=== PATIENT | female | born 1960 | race Caucasian/White ===

== ENCOUNTER 2019-03-24 12:05 | Emergency (ER) | payer MEDICARE, MEDICAID ==
[~2019-03-24] VITALS: Ht 154.9 cm; Wt 67.7 kg
[2019-03-24 12:55] VITALS: Ht 154.9 cm; Wt 67.7 kg
--- NOTE | 2019-03-24 13:34 | NUR ---
DR. BELL NOTIFIED AND REVIEWED PT'S BEHAVIOR AND ASSESSMENT RESULTS. PT IS A LOW RISK PER DR. BELL. DR. BELL STATED TO GIVE RESOURCES TO PT AT TIME OF DISCHARGE. NO FURTHER ORDERS AT THIS TIME. RESOURCES REVIEWED WITH PT AND SHE VERBALIZED UNDERSTANDING.
[2019-03-24] MEDS ORDERED: ROBAXIN500 MG PO (17:51)
[2019-03-24] MEDS ORDERED: TORADOL10 MG PO (17:51)
[2019-03-24 18:24] VITALS: BP 148/82
[2019-03-29] MEDS ORDERED: SYNTHROID100 MCG (13:18)
[2019-03-29] MEDS ORDERED: BUSPIRONE HCL30 MG (13:19)
== END 2019-03-24 18:25 | disposition home or self-care (01) ==
LOC: D.ER 12:05
DX: M54.12 Radiculopathy, cervical region (principal); M12.88 Other specific arthropathies, not elsewhere classified, other specified site; F17.210 Nicotine dependence, cigarettes, uncomplicated

== ENCOUNTER 2019-03-29 13:07 | Emergency (ER) | payer MEDICARE, MEDICAID ==
[~2019-03-29] VITALS: Ht 154.9 cm; Wt 67.7 kg
[~2019-03-29 13:07] MED LIST: ROBAXIN500 MG PO; TORADOL10 MG PO
[2019-03-29 13:10] VITALS: Ht 154.9 cm; Wt 67.7 kg
[2019-03-29] MEDS ORDERED: SYNTHROID100 MCG PO (13:18)
[2019-03-29] MEDS ORDERED: BUSPIRONE HCL30 MG PO (13:19)
[2019-03-29] MEDS ORDERED: ALBUTEROL SULF8.5 GM (13:21)
[2019-03-29 14:26] LABS: BASOPHILS 0.3 % (0-2); EOSINOPHILS 2.1 % (0-7); HEMATOCRIT 40.2 % (36.0-48.0); HEMOGLOBIN 13.8 g/dL (12-16); IMMATURE GRANULOCYTES 0.1 % (0-5); LYMPHOCYTES 32.1 % (15-50); MCH 30.2 pg (26.0-34.0); MCHC 34.3 g/dL (31.0-37.0); MEAN PLATELET VOLUME 10.6 fL (7.4-10.4); MONOCYTES 6.1 % (2-11); NEUTROPHILS 59.3 % (40-80); PLATELET COUNT 201 10x3/uL (130-400); RBC 4.57 10x6/uL (4.00-5.40); RDW 13.8 % (11.5-14.5)
[2019-03-29 14:42] LABS: ALBUMIN 3.5 g/dL (3.4-5.0); ANION GAP 12.2 mmol/L (8-16); BILIRUBIN - TOTAL 0.51 mg/dL (0.2-1.3); CALCIUM 8.8 mg/dL (8.5-10.1); CARBON DIOXIDE 28.4 mmol/L (21.0-32.0); CREATININE - SERUM 0.9 mg/dL (0.6-1.3); POTASSIUM - SERUM 3.6 mmol/L (3.5-5.1); PROTEIN - SERUM 6.7 g/dL (6.4-8.2)
[2019-03-29 15:25] LABS: APPEARANCE CLEAR (CLEAR); BILIRUBIN NEGATIVE (NEGATIVE); COLOR YELLOW (YELLOW); GLUCOSE NEGATIVE (NEGATIVE); KETONE NEGATIVE (NEGATIVE); NITRITE NEGATIVE (NEGATIVE); PROTEIN NEGATIVE (NEGATIVE); SPECIFIC GRAVITY 1.005 (1.005-1.020); UROBILINOGEN NORMAL (NORMAL)
[2019-03-29] MEDS ORDERED: LOMOTIL 2.5-0.1 EAC1 PO (16:01)
[2019-03-29] MEDS ORDERED: ZOFRAN ODT4 MG/UDTAB PO (16:01)
[2019-03-29 16:15] VITALS: BP 100/44
[2019-05-12] MEDS ORDERED: HYDROCODON-ACE1 EA10 PO (10:27)
[2019-05-12] MEDS ORDERED: EXCEDRIN MIGRAINE (10:29)
[2019-05-13 11:33] VITALS: Ht 154.9 cm; Wt 67.7 kg
== END 2019-03-29 16:15 | disposition home or self-care (01) ==
LOC: D.ER 13:07
PROVIDERS: Family Medicine
DX: A08.4 Viral intestinal infection, unspecified (principal); F32.9 Major depressive disorder, single episode, unspecified; F17.210 Nicotine dependence, cigarettes, uncomplicated

== ENCOUNTER 2019-05-13 05:49 | Day surgery (SDC) | payer MEDICARE, MEDICAID ==
[2019-05-12 11:33] LABS: HEMATOCRIT 43.3 % (36.0-48.0); HEMOGLOBIN 14.5 g/dL (12-16); MCH 29.7 pg (26.0-34.0); MCHC 33.5 g/dL (31.0-37.0); MCV 88.7 fL (80.0-100.0); MEAN PLATELET VOLUME 10.5 fL (7.4-10.4); RBC 4.88 10x6/uL (4.00-5.40); WBC 8.5 10x3/uL (4.8-10.8)
[2019-05-12 12:16] LABS: INR 0.97 (0.85-1.17); PROTIME 12.4 SECONDS (11.6-15.0)
[~2019-05-13] VITALS: Ht 154.9 cm; Wt 66.8 kg
[2019-05-13] VITALS (11 sets, daily range): BP systolic 119–153; BP diastolic 65–84; Ht 154.9 cm; Wt 66.8 kg
[~2019-05-13 05:49] MED LIST changes: +ALBUTEROL SULF8.5 GM; +BUSPIRONE HCL30 MG PO; +EXCEDRIN MIGRAINE; +HYDROCODON-ACE1 EA10 PO; +LOMOTIL 2.5-0.1 EAC1 PO; +SYNTHROID100 MCG PO; +ZOFRAN ODT4 MG/UDTAB PO
[2019-05-13] MEDS ORDERED: DURAGESIC1 PATCH .7 TRANSDERM (06:38)
--- NOTE | 2019-05-13 19:15 | NUR ---
RECEIVED CARE FROM DAY NURSE. UP AMBULATING.
--- NOTE | 2019-05-13 20:15 | NUR ---
PAIN MED GIVEN FOR NECK. DRESSING WEEPING BLOOD. DRESSING REINFORCED WITH ABD PAD AT THIS TIME. LINEN TO PILLOW CHANGED. NO OTHER NEEDS VOICED AT THIS TIME. CALL LIGHT AT SIDE.
--- NOTE | 2019-05-14 02:37 | NUR ---
I have reviewed this patient and I concur with the Shift Assessment completed by the Licensed Practical Nurse today this shift.
[2019-05-14 04:00] VITALS: BP 140/75
--- NOTE | 2019-05-14 07:05 | NUR ---
ALERT AND ORIENTED, SITTING UP IN BED. NO C/O PAIN. NO S/S OF ACUTE DISTRESS NOTED. DRESSING TO MIDLINE UPPER BACK, C/D/I. ON 2L O2, NC. IV TO RIGHT HAND, NS INFUSING @ 10ML/HR. SITE PATENT WITHOUT REDNESS OR SWELLING. PT DENIES ANY NEEDS AT THIS TIME. CALL LIGHT IN REACH. WILL CONTINUE TO MONITOR.
[2019-05-14 09:47] VITALS: BP 153/79
[2019-05-14] MEDS ORDERED: HYDROCODON-ACE1 EA10 PO (10:13)
--- NOTE | 2019-05-14 11:58 | NUR ---
pt aox4 resp even and unlabored pt denies pain or needs at this time. will continue to monitor
--- NOTE | 2019-05-14 12:35 | NUR ---
PT DISCHARGED HOME WITH SPOUSE. DISCONTINUED IV, CATHETER TIP INTACT. WENT OVER DISCHARGE INSTRUCTIONS WITH PT, PT VERBALIZED UNDERSTANDING. PT DENIES ANY FURTHER NEEDS.
--- NOTE | 2019-05-26 16:12 | OP ---
PATIENT NAME: ALENA MAYNARD MEDICAL RECORD: [id number] :64 LOCATION:[facility] ADMISSION DATE: SURGEON: BRISSA LOPEZ MD DATE OF OPERATION: 05/13/2019 PREOPERATIVE DIAGNOSIS: Left C6-C7 and C7-T1 foraminal stenosis on the left. POSTOPERATIVE DIAGNOSIS: Left C6-7 and C7-T1 foraminal stenosis on the left. PROCEDURES: Posterior cervical foraminotomy, medial facetectomy and foraminotomy at C7-T1 on the left, C6-C7 on the left. SURGEON: Dr. Brissa Lopez DESCRIPTION AND TECHNIQUE: After induction of general endotracheal anesthesia, the patient was rolled prone on chest and hip rolls. The head was fixated in the Dahinda head pins. After sterile prep and drape of the posterior cervical spine, the C6-C7 interspace was identified with fluoroscopic x-ray and a spinal needle. After infiltration of 1:100,000 epinephrine and 1% lidocaine into the subcutaneous tissues, an incision was carried out from the midline from the spinous process of C7-T1 in the midline. The ligamentum nuchae was divided with a Bovie cautery. The spinous processes and laminae C7, C6, and T1 were exposed in a subperiosteal manner. Level was confirmed with fluoroscopic x-ray. A Midas Lino drill and microscope were used to perform a laminotomy, medial facetectomy and foraminotomy at C6-7 and C7-T1 on the left. Hypertrophied ligamentum flavum was removed with Cloward rongeurs. Following this, the left C7 and C8 nerve roots were decompressed well. Meticulous hemostasis was maintained throughout the wound. Wound was irrigated with copious amounts of Ancef irrigant solution. The fascia was closed with 2-0 Vicryl suture, the subdermal layer was closed with 3-0 Vicryl suture. The skin was closed with rowena. A sterile dressing was applied to the wound. The patient was awakened in good condition and taken to recovery. All counts were reported as correct. Estimated blood loss was minimal. TRANSINT:[id number] Voice Confirmation ID: [id number] DOCUMENT ID: [id number] BRISSA LOPEZ MD at 1612 CC: [id number] DICTATION DATE: 05/13/19 1440 [employer] MOTOR: 05/14/19 0016 DEP SDC 05/14/19 [facility] [address] [place] [address]
== END 2019-05-14 12:30 | disposition home or self-care (01) ==
LOC: OBSVTIME → D.MS 05:49 → D.OPS 05:49 → D.MS 05:49 → D.SDCHOLD 05:49 → EDSTATUS 09:15 → D.SDCHOLD 09:15 → OBSVTIME 09:56 → D.MS 09:59 → D.SDCHOLD 09:59 → D.OPS 05-14 12:30 → D.MS 05-14 12:41
PROVIDERS: Anesthesiology; ATTEND Neurological Surgery
DX: M48.02 Spinal stenosis, cervical region (principal); M54.12 Radiculopathy, cervical region

== ENCOUNTER → 2019-12-14 14:14 | Outpatient (CLI) | payer MEDICARE, MEDICAID ==
[2019-05-13 11:33] VITALS: BMI 27.8
[~2019-12-14 14:14] MED LIST changes: +DURAGESIC1 PATCH .7 TRANSDERM
[2019-12-14 14:46] LABS: BASOPHILS 0.4 % (0-2); EOSINOPHILS 3.1 % (0-7); HEMATOCRIT 41.2 % (36.0-48.0); HEMOGLOBIN 12.5 g/dL (12-16); IMMATURE GRANULOCYTES 0.2 % (0-5); LYMPHOCYTES 32.3 % (15-50); MCH 26.3 pg (26.0-34.0); MCHC 30.3 g/dL (31.0-37.0); MCV 86.7 fL (80.0-100.0); MEAN PLATELET VOLUME 9.6 fL (7.4-10.4); MONOCYTES 5.7 % (2-11); NEUTROPHILS 58.3 % (40-80); RBC 4.75 10x6/uL (4.00-5.40); WBC 9.1 10x3/uL (4.8-10.8)
[2019-12-14 14:47] LABS: PLATELET COUNT 532 10x3/uL (130-400)
[2019-12-14 15:13] LABS: ALBUMIN 3.5 g/dL (3.4-5.0); ANION GAP 12.2 mmol/L (8-16); BILIRUBIN - TOTAL 0.29 mg/dL (0.2-1.3); CALCIUM 8.7 mg/dL (8.5-10.1); CARBON DIOXIDE 33.1 mmol/L (21.0-32.0); CREATININE - SERUM 1.1 mg/dL (0.6-1.3); POTASSIUM - SERUM 4.3 mmol/L (3.5-5.1); PROTEIN - SERUM 7.4 g/dL (6.4-8.2)
== END | disposition home or self-care (01) ==
LOC: D.LABREF 14:14
PROVIDERS: ATTEND Orthopaedic Surgery
DX: M79.89 Other specified soft tissue disorders (principal)

== ENCOUNTER → 2020-10-25 11:16 | Outpatient (CLI) | payer MEDICARE, MEDICAID ==
[2020-07-04 12:40] VITALS: BMI 32.8
[~2020-10-25 11:16] MED LIST changes: +AZELASTINE137 MCG/0. NASAL; +BUPROPION HCL100 M1 PO; +CARAFATE1 G PO; +CENTRUM SILVER1 EAC3 PO; +CYMBALTA30 MG PO; +FOLIC ACID0.8 MG PO; +LISINOPRIL2.5 MG PO; +OMEPRAZOLE40 MG PO; +VITAMIN D3 PO
== END | disposition home or self-care (01) ==
LOC: D.LAB 11:16
PROVIDERS: ATTEND Internal Medicine Pulmonary Disease
DX: Z11.52 Encounter for screening for COVID-19 (principal)

== ENCOUNTER → 2020-10-30 11:05 | Outpatient (CLI) | payer MEDICARE, MEDICAID ==
[2020-07-04 12:40] VITALS: BMI 32.8
== END | disposition home or self-care (01) ==
LOC: D.RT 11:05
PROVIDERS: ATTEND Internal Medicine Pulmonary Disease
DX: J43.9 Emphysema, unspecified (principal); Z11.52 Encounter for screening for COVID-19